=== PATIENT | female | born 1980 | race Two or more races ===

== ENCOUNTER 2018-10-03 19:58 | Inpatient (IN) | payer SELFPAY ==
[~2018-10-03] VITALS: Ht 154.9 cm; Wt 77.3 kg
[2018-10-03] MEDS ORDERED: MAG HYDROX/ALUMINUM HYD/SIMETH 30 ML ORAL.SUSP PO PRN (20:00)
[2018-10-03] MEDS ORDERED: CITRIC ACID/SODIUM CITRATE 30 ML SOLUTION. PO PRN (20:00)
[2018-10-03] MEDS ORDERED: ACETAMINOPHEN 325 MG TABLET. PO PRN (20:00)
[2018-10-03] MEDS ORDERED: 0.9 % SODIUM CHLORIDE 10 ML DISP.SYRIN. IV PRN (20:00)
[2018-10-03] MEDS ORDERED: OXYTOCIN 30 UNIT/500 ML PREMIX 500 ML IV PRN (20:00)
[2018-10-03] MEDS ORDERED: TERBUTALINE 1 MG/ML VIAL. SQ PRN (20:00)
[2018-10-03] MEDS ORDERED: ONDANSETRON PF 4 MG/2 ML VIAL. IV PRN (20:00)
[2018-10-03 20:25] LABS: BILIRUBIN,URINE NEGATIVE (NEG); CLARITY,URINE CLOUDY; COLOR,URINE YELLOW; NITRITE,URINE NEGATIVE (NEG); PROTEIN,URINE NEGATIVE (NEG-TRACE); UROBILINOGEN,URINE 0.2 mg/dL (0.2 mg/dL)
[2018-10-03 20:32] LABS: BARBITURATES NEG (NEG); BENZODIAZEPINES NEG (NEG); CANNABINOIDS NEG (NEG); COCAINE NEG (NEG); METHADONE NEG (NEG); OPIATES NEG (NEG); PHENCYCLIDINE NEG (NEG)
[2018-10-03 20:33] LABS: AMPHETAMINE/METHAMPHETAMINE NEG (NEG)
[2018-10-03 21:06] LABS: BASO % 1 % (0-3); EOS # 0.1 x10^3/uL (0.0-0.7); EOS % 2 % (0-3); HEMOGLOBIN 11.4 g/dL (12.0-15.5); LYMPH # 1.8 x10^3/uL (1.0-4.8); LYMPH % 24 % (24-48); MEAN CORPUSCULAR HEMOGLOBIN 32 pg (25-35); MEAN CORPUSCULAR HGB CONC 36 g/dL (31-37); MEAN CORPUSCULAR VOLUME 89 fL (79-100); MONO # 0.5 x10^3/uL (0.0-1.1); MONO % 7 % (0-9); NEUT % 67 % (31-73); PLATELET COUNT 258 x10^3/uL (140-400); RED CELL DISTRIBUTION WIDTH 13.8 % (11.5-14.5); WHITE BLOOD COUNT 7.5 x10^3/uL (4.0-11.0)
[2018-10-03 22:03] VITALS: BP 115/73
[2018-10-03] MEDS: IV RINGERS,LACTATED 1000ML 1,000 ML IV SCH (22:40)
[2018-10-04] MEDS: IV RINGERS,LACTATED 1000ML 1,000 ML IV SCH ×2 (01:43→06:38)
[2018-10-04] MEDS ORDERED: ceFAZolin SODIUM 1 GM in IV DEXTROSE 5% 50 ML IV ONE (07:00)
[2018-10-04] MEDS ORDERED: ONDANSETRON PF 4 MG/2 ML VIAL. ONE (07:02)
[2018-10-04] MEDS ORDERED: OXYTOCIN 10 UNIT/ML VIAL. ONE ×4 (07:02→08:23)
[2018-10-04] MEDS ORDERED: ePHEDrine PF IN SALINE 50 MG/10 ML SYRINGE. IV ONE (07:02)
[2018-10-04] MEDS ORDERED: MORPHINE PF 10 MG/10 ML AMPUL. ONE (07:03)
[2018-10-04] MEDS ORDERED: fentaNYL PF VIAL 100 MCG/2 ML VIAL ONE (07:04)
--- NOTE | 2018-10-04 07:28 | PDOC1 ---
OB - History Hx of Present Care: Good Care Ultrasounds: Normal mid trimester US Obstetrical Complications: Other (Oligohydramnios) Medical Complications: None Past Family/Social History * Past Medical, Surgical, Family and Obstetric Histories reviewed from chart. Rubella: Immune RPR/VDRL: Negative GBS Status: Negative HBsAG: Negative OB - Chief Complaint & HPI Date of Admission: Date of Admission: Oct 03, 2018 at 19:58 Chief Complaint/History : 2 Para: 1 EGA: 37 Reason for admission: section (Oligohydramnios) Indication for : desires repeat Admission Nurse Assessment Rev: Yes OB - Admission Exam Physical Exam Vitals: VS - Last 72 Hours, by Label Date Time Temp Pulse Resp B/P (MAP) Pulse Ox O2 Delivery O2 Flow Rate FiO2 10/03/18 22:03 98.3 82 18 115/73 (87) Room Air 98.3 HEENT: Normal Heart: Regular Rate Lungs: Clear Abdomen: Gravid, Non tender, Soft Extremities: Edema Reflexes: Normal Cervical Dilatation: None Effacement: 25% Station: Ballotable Membranes: Intact Heart Rate: Normal Accelerations: Accelerations Present Contractions on Admission: >10 Minutes Apart Intensity: Mild Text A: 37 wks IUP Oligohydramnios Previous c/s P: Admit for repeat c/s for oligohydramnios. JONATHON CHAN Jr, MD Oct 04, 2018 07:28
[2018-10-04] MEDS ORDERED: ceFAZolin 1GM IVPB FOR OMNI 1 GM/50 ML BAG IV ONE (07:45)
--- NOTE | 2018-10-04 08:34 | PDOC4 ---
OB Operative Note Date: Oct 04, 2018 PRE OP DIAGNOSIS: Previoujs C- section (Oligohydramnios) POST OP DIAGNOSIS: Other (Same + Breech) OPERATION PERFORMED: R [facility] Surgeon Dr. Gamez Anesthesia: Regional (Spinal) Blood Loss 800 ml Specimen placenta and OB Findings: Position (Breech), Sex (Female), (8/9), Weight (3360 Gram) Complications none Additional Remarks pt. JOANTHON Magdaleno Jr, MD Oct 04, 2018 08:34
[2018-10-04] MEDS ORDERED: ONDANSETRON PF 4 MG/2 ML VIAL. IV PRN (08:45)
[2018-10-04] MEDS ORDERED: SIMETHICONE 80 MG TAB.CHEW PO PRN (08:45)
[2018-10-04] MEDS ORDERED: ZOLPIDEM 5 MG TABLET. PO PRN (08:45)
[2018-10-04] MEDS ORDERED: KETOROLAC 30 MG/ML VIAL. IV PRN (08:45)
[2018-10-04] MEDS ORDERED: 0.9 % SODIUM CHLORIDE 10 ML DISP.SYRIN. IV PRN (08:45)
[2018-10-04] MEDS ORDERED: MAG HYDROX/ALUMINUM HYD/SIMETH 30 ML ORAL.SUSP PO PRN (08:45)
[2018-10-04] MEDS ORDERED: OXYTOCIN 30 UNIT/500 ML PREMIX 500 ML IV PRN (08:45)
[2018-10-04] MEDS ORDERED: diphenhydrAMINE ORAL ELIXIR 12.5 MG/5 ML ML PO PRN (08:45)
--- NOTE | 2018-10-04 08:46 | OP ---
DATE OF SURGERY: PREOPERATIVE DIAGNOSES: 1. A 37 weeks intrauterine . 2. Oligohydramnios. 3. Previous . POSTOPERATIVE DIAGNOSES: 1. A 37 weeks intrauterine . 2. Oligohydramnios. 3. Previous . 4. Breech. PROCEDURE: Repeat low transverse section. SURGEON: Jonathon Gamez MD. ANESTHESIA: Spinal. ESTIMATED BLOOD LOSS: 800 mL. COMPLICATIONS: None. FINDINGS: Viable female infant, Apgars 8 and 9, weight 3360 grams. Three-vessel cord placenta delivered manually intact. SUMMARY: A 37-year-old 2, para 1 at 37 weeks, presented for repeat low transverse section secondary to oligohydramnios. The patient was counseled on risks, benefits and expectations and voiced clear understanding to proceed. DESCRIPTION OF PROCEDURE: The patient was taken to surgery suite and placed in dorsal supine position. She was prepped with ChloraPrep and draped in sterile fashion. After adequate anesthesia, Pfannenstiel skin incision was made with scalpel down to and through the fascia. Fascia was extended using curved Epperson scissors. The superior edge of fascia was grasped with two Kristopher clamps and dissected free of the abdominal rectus muscles using blunt dissection along with Bovie cautery. The same process took place inferiorly. The peritoneum was grasped with 2 hemostats and entered sharply with Metzenbaum scissors. This incision was extended superiorly as well as inferiorly. Bladder flap was created using sharp dissection with Metzenbaum scissors. The Maxi ring retractor was placed. Low transverse hysterotomy incision was made with scalpel down to the amniotic sac. Hysterotomy incision was extended laterally and superiorly digitally. The presenting part was then the feet and was determined to be breech. Amniotomy was performed, which elicited a small amount of clear fluid. Both ankles were grasped with fundal pressure, the infant was delivered down to the subscapular region. A moist blue towel was wrapped around the waist of the infant. The right arm was swept across the chest. The was rotated 180 degrees. Left arm was swept across the chest with additional fundal pressure, the 's head was delivered in atraumatic manner. The was then suctioned with bulb syringe orally and nasally, umbilical cord was clamped twice and cut and viable female infant was handed to waiting nursing staff. Umbilical cord blood was then obtained. Three-vessel cord placenta was delivered manually intact. The uterus was then exteriorized and cleared of clot and debris with a moist lap. Hysterotomy incision was reapproximated using 1 Vicryl suture in running locked fashion and imbricated layer of 1 Vicryl suture was utilized for better hemostasis. Three [id number] sutures were placed along the hysterotomy incision for better hemostasis. Uterus then palpated firm. Fallopian tubes and ovaries appeared normal bilaterally. The posterior cul-de-sac was cleared of clot and debris with moist lap. The uterus was then returned to the abdomen. The hysterotomy incision was reviewed and was hemostatic. Pericolic gutters were cleared of clot and debris with a moist lap. The Maxi ring retractor was removed. Peritoneum was reapproximated using #1 Vicryl suture in running fashion. Fascia was reapproximated using Stratafix in a running fashion. Skin was reapproximated using 4-0 Vicryl suture in subcuticular manner. The patient tolerated the procedure well and was taken to recovery room in stable condition. Sponge and needle count correct x 3. JONATHON GAMEZ MD DR: GALILEA/alejo JOB#: [id number] / [id number]
[2018-10-04 11:20] VITALS: BP 96/60
[2018-10-04 11:50] VITALS: BP 98/67
[2018-10-04 12:10] VITALS: BP 101/70
[2018-10-04 13:05] VITALS: BP 104/72
[2018-10-04] MEDS ORDERED: OXYTOCIN PREMIX 30 UNIT/500 ML NS BAG. IV ONE (17:00)
[2018-10-04 20:00] VITALS: BP 86/56
[2018-10-05 01:08] VITALS: BP 87/55
[2018-10-05 05:01] VITALS: BP 92/60
[2018-10-05 06:47] LABS: BASO # 0.1 x10^3/uL (0.0-0.2); BASO % 1 % (0-3); EOS # 0.1 x10^3/uL (0.0-0.7); EOS % 1 % (0-3); HEMOGLOBIN 8.4 g/dL (12.0-15.5); LYMPH # 1.4 x10^3/uL (1.0-4.8); LYMPH % 15 % (24-48); MEAN CORPUSCULAR HEMOGLOBIN 31 pg (25-35); MEAN CORPUSCULAR HGB CONC 35 g/dL (31-37); MEAN CORPUSCULAR VOLUME 90 fL (79-100); MONO # 0.6 x10^3/uL (0.0-1.1); MONO % 6 % (0-9); NEUT # 7.1 x10^3/uL (1.8-7.7); NEUT % 78 % (31-73); PLATELET COUNT 201 x10^3/uL (140-400); RED BLOOD COUNT 2.68 x10^6/uL (3.50-5.40); RED CELL DISTRIBUTION WIDTH 13.9 % (11.5-14.5); WHITE BLOOD COUNT 9.2 x10^3/uL (4.0-11.0)
[2018-10-05 08:15] VITALS: BP 95/63
--- NOTE | 2018-10-05 08:17 | PDOC ---
OB Progress Note Date of Service 10/05/18 Time of Evaluation 0815 Notes Pt. feeling well. Will improve pain management today. Lab Laboratory Tests Test 10/03/18 20:20 10/03/18 21:00 10/05/18 06:20 Urine Collection Type Unknown Urine Color Yellow Urine Clarity Cloudy Urine pH 6.0 Urine Specific [place] 1.025 Urine Protein Negative mg/dL (NEG-TRACE) Urine Glucose (UA) Negative mg/dL (NEG) Urine Ketones (Stick) Negative mg/dL (NEG) Urine Blood Negative (NEG) Urine Nitrite Negative (NEG) Urine Bilirubin Negative (NEG) Urine Urobilinogen Dipstick 0.2 mg/dL (0.2 mg/dL) Urine Leukocyte Esterase Negative (NEG) Urine Opiates Screen Neg (NEG) Urine Methadone Screen Neg (NEG) Urine Barbiturates Neg (NEG) Urine Phencyclidine Screen Neg (NEG) Urine Amphetamine/Methamphetamine Neg (NEG) Urine Benzodiazepines Screen Neg (NEG) Urine Cocaine Screen Neg (NEG) Urine Cannabinoids Screen Neg (NEG) Urine Ethyl Alcohol Neg (NEG) White Blood Count 7.5 x10^3/uL (4.0-11.0) 9.2 x10^3/uL (4.0-11.0) Red Blood Count 3.60 x10^6/uL (3.50-5.40) 2.68 x10^6/uL (3.50-5.40) Hemoglobin 11.4 g/dL (12.0-15.5) 8.4 g/dL (12.0-15.5) Hematocrit 32.0 % (36.0-47.0) 24.0 % (36.0-47.0) Mean Corpuscular Volume 89 fL (79-100) 90 fL (79-100) Mean Corpuscular Hemoglobin 32 pg (25-35) 31 pg (25-35) Mean Corpuscular Hemoglobin Concent 36 g/dL (31-37) 35 g/dL (31-37) Red Cell Distribution Width 13.8 % (11.5-14.5) 13.9 % (11.5-14.5) Platelet Count 258 x10^3/uL (140-400) 201 x10^3/uL (140-400) Neutrophils (%) (Auto) 67 % (31-73) 78 % (31-73) Lymphocytes (%) (Auto) 24 % (24-48) 15 % (24-48) Monocytes (%) (Auto) 7 % (0-9) 6 % (0-9) Eosinophils (%) (Auto) 2 % (0-3) 1 % (0-3) Basophils (%) (Auto) 1 % (0-3) 1 % (0-3) Neutrophils # (Auto) 5.0 x10^3/uL (1.8-7.7) 7.1 x10^3/uL (1.8-7.7) Lymphocytes # (Auto) 1.8 x10^3/uL (1.0-4.8) 1.4 x10^3/uL (1.0-4.8) Monocytes # (Auto) 0.5 x10^3/uL (0.0-1.1) 0.6 x10^3/uL (0.0-1.1) Eosinophils # (Auto) 0.1 x10^3/uL (0.0-0.7) 0.1 x10^3/uL (0.0-0.7) Basophils # (Auto) 0.0 x10^3/uL (0.0-0.2) 0.1 x10^3/uL (0.0-0.2) Treponema pallidum Antibody Nonreactive (Nonreactive) Hepatitis B Surface Antigen Nonreactive (Nonreactive) Laboratory Tests Test 10/05/18 06:20 White Blood Count 9.2 x10^3/uL (4.0-11.0) Red Blood Count 2.68 x10^6/uL (3.50-5.40) Hemoglobin 8.4 g/dL (12.0-15.5) Hematocrit 24.0 % (36.0-47.0) Mean Corpuscular Volume 90 fL (79-100) Mean Corpuscular Hemoglobin 31 pg (25-35) Mean Corpuscular Hemoglobin Concent 35 g/dL (31-37) Red Cell Distribution Width 13.9 % (11.5-14.5) Platelet Count 201 x10^3/uL (140-400) Neutrophils (%) (Auto) 78 % (31-73) Lymphocytes (%) (Auto) 15 % (24-48) Monocytes (%) (Auto) 6 % (0-9) Eosinophils (%) (Auto) 1 % (0-3) Basophils (%) (Auto) 1 % (0-3) Neutrophils # (Auto) 7.1 x10^3/uL (1.8-7.7) Lymphocytes # (Auto) 1.4 x10^3/uL (1.0-4.8) Monocytes # (Auto) 0.6 x10^3/uL (0.0-1.1) Eosinophils # (Auto) 0.1 x10^3/uL (0.0-0.7) Basophils # (Auto) 0.1 x10^3/uL (0.0-0.2) Medications Current Medications Cefazolin Sodium 1 gm/Dextrose 50 ml @ 100 mls/hr 1X ONCE IV ; Start 10/04/18 at 07:00; Stop 10/04/18 at 07:29; Status UNV Sodium Chloride (Normal Saline Flush) 3 ml QSHIFT PRN IV AFTER MEDS AND BLOOD DRAWS; Start 10/03/18 at 20:00; Stop 10/04/18 at 17:23; Status DC Ringer's Solution 1,000 ml @ 125 mls/hr Q8H IV Last administered on 10/04/18at 06:38; Start 10/03/18 at 20:00 Acetaminophen (Tylenol) 650 mg PRN Q6HRS PRN PO MILD PAIN / TEMP; Start 10/03/18 at 20:00 Ondansetron HCl (Zofran) 4 mg PRN Q4HRS PRN IV NAUSEA/VOMITING; Start 10/03/18 at 20:00; Stop 10/04/18 at 17:23; Status DC Al Hydroxide/Mg Hydroxide (Mylanta Plus Xs) 30 ml PRN Q4HRS PRN PO HEARTBURN / GAS; Start 10/03/18 at 20:00 Citric Acid/ Sodium Citrate (Bicitra) 30 ml 1X PRN PRN PO DYSPEPSIA; Start 10/03/18 at 20:00; Stop 10/04/18 at 17:23; Status DC Terbutaline Sulfate (Brethine) 0.25 mg 1X PRN PRN SQ SEE COMMENTS; Start 10/03/18 at 20:00; Stop 10/04/18 at 17:23; Status DC Oxytocin/Sodium Chloride 500 ml @ 0 mls/hr CONT PRN PRN IV Post delivery bleeding; Start 10/03/18 at 20:00 Cefazolin Sodium 50 ml @ 100 mls/hr 1X PREOP PRN IV PRIOR TO PROCEDURE; Start 10/04/18 at 07:00; Stop 10/04/18 at 07:01; Status DC Ondansetron HCl (Zofran) 4 mg STK-MED ONCE .ROUTE ; Start 10/04/18 at 07:02; Stop 10/04/18 at 07:03; Status DC Oxytocin (Pitocin) 10 unit STK-MED ONCE .ROUTE ; Start 10/04/18 at 07:02; Stop 10/04/18 at 07:03; Status DC Ephedrine Sulfate (ePHEDrine PF IN SALINE SYRINGE) 50 mg STK-MED ONCE IV ; Start 10/04/18 at 07:02; Stop 10/04/18 at 07:03; Status DC Morphine Sulfate (Morphine Preservative Free) 10 mg STK-MED ONCE .ROUTE ; Start 10/04/18 at 07:03; Stop 10/04/18 at 07:04; Status DC Fentanyl Citrate (Fentanyl 2ml Vial) 100 mcg STK-MED ONCE .ROUTE ; Start 10/04/18 at 07:04; Stop 10/04/18 at 07:04; Status DC Cefazolin Sodium 0 ml @ As Directed STK-MED ONCE IV ; Start 10/04/18 at 07:33; Stop 10/04/18 at 07:34; Status DC Oxytocin (Pitocin) 10 unit STK-MED ONCE .ROUTE ; Start 10/04/18 at 08:23; Stop 10/04/18 at 08:23; Status DC Oxytocin (Pitocin) 10 unit STK-MED ONCE .ROUTE ; Start 10/04/18 at 08:23; Stop 10/04/18 at 08:23; Status DC Oxytocin (Pitocin) 10 unit STK-MED ONCE .ROUTE ; Start 10/04/18 at 08:23; Stop 10/04/18 at 08:23; Status DC Sodium Chloride (Normal Saline Flush) 3 ml QSHIFT PRN IV AFTER MEDS AND BLOOD DRAWS; Start 10/04/18 at 08:45; Stop 10/04/18 at 17:24; Status DC Oxytocin/Sodium Chloride 500 ml @ 125 mls/hr CONT PRN IV EXCESSIVE POST- BLEEDING; Start 10/04/18 at 08:45; Stop 10/04/18 at 16:44; Status DC Ibuprofen (Motrin) 800 mg PRN Q4HRS PRN PO INFLAMMATION; Start 10/04/18 at 08:45 Ondansetron HCl (Zofran) 4 mg PRN Q6HRS PRN IV NAUSEA/VOMITING; Start 10/04/18 at 08:45 Docusate Sodium (Colace) 100 mg PRN BID PRN PO CONSTIPATION; Start 10/04/18 at 08:45 Al Hydroxide/Mg Hydroxide (Mylanta Plus Xs) 30 ml PRN Q4HRS PRN PO HEARTBURN / GAS; Start 10/04/18 at 08:45 Simethicone (Gas-X) 80 mg PRN AFTMEALHC PRN PO GAS / BLOATING; Start 10/04/18 at 08:45 Diphenhydramine HCl (Benadryl Oral Elixir) 12.5 mg PRN Q6HRS PRN PO ITCHING; Start 10/04/18 at 08:45 Ferrous Sulfate (Feosol) 325 mg BIDWMEALS PO ; Start 10/04/18 at 09:00 Zolpidem Tartrate (Ambien) 5 mg PRN QHS PRN PO INSOMNIA, MAY REPEAT X1; Start 10/04/18 at 08:45 Oxycodone/ Acetaminophen (Percocet 5/325) 2 tab PRN Q4HRS PRN PO MODERATE PAIN, SEVERE PAIN; Start 10/04/18 at 08:45 Ketorolac Tromethamine (Toradol 30mg Vial) 30 mg PRN Q6HRS PRN IV MODERATE PAIN Last administered on 10/04/18at 17:19; Start 10/04/18 at 08:45; Stop 10/09/18 at 08:44 Cefazolin Sodium (Ancef 1gm Ivpb For Omni) 2 gm STK-MED ONCE IV ; Start 10/04/18 at 07:45; Stop 10/04/18 at 08:53; Status DC Oxytocin/Sodium Chloride (Oxytocin Premix Infusion) 30 unit STK-MED ONCE IV ; Start 10/04/18 at 17:00; Stop 10/05/18 at 08:03; Status DC Exam Abd: soft, moderate tenderness, fundus firm Bandage removed. Incision site: clean, dry and intact Assessment POD#1 s/p repeat c/s Plan of Care: Continue current Tx, Mgmt JONATHON CHAN Jr, MD Oct 05, 2018 08:17
[2018-10-05] MEDS: DOCUSATE SODIUM 100 MG CAPSULE. PO PRN (08:39)
[2018-10-05] MEDS: FERROUS SULFATE 325 MG TABLET. PO SCH ×2 (08:39→17:22)
[2018-10-05] MEDS: oxyCODONE/APAP 5/325 1 TAB TABLET PO PRN ×5 (08:39→21:13)
[2018-10-05] MEDS: IBUPROFEN 400 MG TABLET. PO PRN ×3 (08:40→21:13)
[2018-10-05 17:20] VITALS: BP 87/55
[2018-10-05 22:56] VITALS: BP 82/47
[2018-10-06] MEDS: IBUPROFEN 400 MG TABLET. PO PRN ×2 (01:56→13:02)
[2018-10-06] MEDS: oxyCODONE/APAP 5/325 1 TAB TABLET PO PRN ×5 (01:57→17:43)
[2018-10-06 05:18] VITALS: BP 98/57
[2018-10-06] MEDS: FERROUS SULFATE 325 MG TABLET. PO SCH ×2 (09:06→17:40)
[2018-10-06] MEDS: DOCUSATE SODIUM 100 MG CAPSULE. PO PRN (09:06)
[2018-10-06 11:25] VITALS: BP 90/60
--- NOTE | 2018-10-06 12:00 | PDOC ---
OB Progress Note Date of Service 10/06/18 Time of Evaluation 1200 Notes PT. feeling well. No complaints. Lab Laboratory Tests Test 10/05/18 06:20 White Blood Count 9.2 x10^3/uL (4.0-11.0) Red Blood Count 2.68 x10^6/uL (3.50-5.40) Hemoglobin 8.4 g/dL (12.0-15.5) Hematocrit 24.0 % (36.0-47.0) Mean Corpuscular Volume 90 fL (79-100) Mean Corpuscular Hemoglobin 31 pg (25-35) Mean Corpuscular Hemoglobin Concent 35 g/dL (31-37) Red Cell Distribution Width 13.9 % (11.5-14.5) Platelet Count 201 x10^3/uL (140-400) Neutrophils (%) (Auto) 78 % (31-73) Lymphocytes (%) (Auto) 15 % (24-48) Monocytes (%) (Auto) 6 % (0-9) Eosinophils (%) (Auto) 1 % (0-3) Basophils (%) (Auto) 1 % (0-3) Neutrophils # (Auto) 7.1 x10^3/uL (1.8-7.7) Lymphocytes # (Auto) 1.4 x10^3/uL (1.0-4.8) Monocytes # (Auto) 0.6 x10^3/uL (0.0-1.1) Eosinophils # (Auto) 0.1 x10^3/uL (0.0-0.7) Basophils # (Auto) 0.1 x10^3/uL (0.0-0.2) Medications Current Medications Cefazolin Sodium 1 gm/Dextrose 50 ml @ 100 mls/hr 1X ONCE IV ; Start 10/04/18 at 07:00; Stop 10/04/18 at 07:29; Status UNV Sodium Chloride (Normal Saline Flush) 3 ml QSHIFT PRN IV AFTER MEDS AND BLOOD DRAWS; Start 10/03/18 at 20:00; Stop 10/04/18 at 17:23; Status DC Ringer's Solution 1,000 ml @ 125 mls/hr Q8H IV Last administered on 10/04/18at 06:38; Start 10/03/18 at 20:00 Acetaminophen (Tylenol) 650 mg PRN Q6HRS PRN PO MILD PAIN / TEMP; Start 10/03/18 at 20:00 Ondansetron HCl (Zofran) 4 mg PRN Q4HRS PRN IV NAUSEA/VOMITING; Start 10/03/18 at 20:00; Stop 10/04/18 at 17:23; Status DC Al Hydroxide/Mg Hydroxide (Mylanta Plus Xs) 30 ml PRN Q4HRS PRN PO HEARTBURN / GAS; Start 10/03/18 at 20:00 Citric Acid/ Sodium Citrate (Bicitra) 30 ml 1X PRN PRN PO DYSPEPSIA; Start 10/03/18 at 20:00; Stop 10/04/18 at 17:23; Status DC Terbutaline Sulfate (Brethine) 0.25 mg 1X PRN PRN SQ SEE COMMENTS; Start 10/03/18 at 20:00; Stop 10/04/18 at 17:23; Status DC Oxytocin/Sodium Chloride 500 ml @ 0 mls/hr CONT PRN PRN IV Post delivery bleeding; Start 10/03/18 at 20:00 Cefazolin Sodium 50 ml @ 100 mls/hr 1X PREOP PRN IV PRIOR TO PROCEDURE; Start 10/04/18 at 07:00; Stop 10/04/18 at 07:01; Status DC Ondansetron HCl (Zofran) 4 mg STK-MED ONCE .ROUTE ; Start 10/04/18 at 07:02; Stop 10/04/18 at 07:03; Status DC Oxytocin (Pitocin) 10 unit STK-MED ONCE .ROUTE ; Start 10/04/18 at 07:02; Stop 10/04/18 at 07:03; Status DC Ephedrine Sulfate (ePHEDrine PF IN SALINE SYRINGE) 50 mg STK-MED ONCE IV ; Start 10/04/18 at 07:02; Stop 10/04/18 at 07:03; Status DC Morphine Sulfate (Morphine Preservative Free) 10 mg STK-MED ONCE .ROUTE ; Start 10/04/18 at 07:03; Stop 10/04/18 at 07:04; Status DC Fentanyl Citrate (Fentanyl 2ml Vial) 100 mcg STK-MED ONCE .ROUTE ; Start 10/04/18 at 07:04; Stop 10/04/18 at 07:04; Status DC Cefazolin Sodium 0 ml @ As Directed STK-MED ONCE IV ; Start 10/04/18 at 07:33; Stop 10/04/18 at 07:34; Status DC Oxytocin (Pitocin) 10 unit STK-MED ONCE .ROUTE ; Start 10/04/18 at 08:23; Stop 10/04/18 at 08:23; Status DC Oxytocin (Pitocin) 10 unit STK-MED ONCE .ROUTE ; Start 10/04/18 at 08:23; Stop 10/04/18 at 08:23; Status DC Oxytocin (Pitocin) 10 unit STK-MED ONCE .ROUTE ; Start 10/04/18 at 08:23; Stop 10/04/18 at 08:23; Status DC Sodium Chloride (Normal Saline Flush) 3 ml QSHIFT PRN IV AFTER MEDS AND BLOOD DRAWS; Start 10/04/18 at 08:45; Stop 10/04/18 at 17:24; Status DC Oxytocin/Sodium Chloride 500 ml @ 125 mls/hr CONT PRN IV EXCESSIVE POST- BLEEDING; Start 10/04/18 at 08:45; Stop 10/04/18 at 16:44; Status DC Ibuprofen (Motrin) 800 mg PRN Q4HRS PRN PO INFLAMMATION Last administered on 10/06/18at 01:57; Start 10/04/18 at 08:45 Ondansetron HCl (Zofran) 4 mg PRN Q6HRS PRN IV NAUSEA/VOMITING; Start 10/04/18 at 08:45 Docusate Sodium (Colace) 100 mg PRN BID PRN PO CONSTIPATION Last administered on 10/06/18at 09:06; Start 10/04/18 at 08:45 Al Hydroxide/Mg Hydroxide (Mylanta Plus Xs) 30 ml PRN Q4HRS PRN PO HEARTBURN / GAS; Start 10/04/18 at 08:45 Simethicone (Gas-X) 80 mg PRN AFTMEALHC PRN PO GAS / BLOATING; Start 10/04/18 at 08:45 Diphenhydramine HCl (Benadryl Oral Elixir) 12.5 mg PRN Q6HRS PRN PO ITCHING; Start 10/04/18 at 08:45 Ferrous Sulfate (Feosol) 325 mg BIDWMEALS PO Last administered on 10/06/18at 09:06; Start 10/04/18 at 09:00 Zolpidem Tartrate (Ambien) 5 mg PRN QHS PRN PO INSOMNIA, MAY REPEAT X1; Start 10/04/18 at 08:45 Oxycodone/ Acetaminophen (Percocet 5/325) 2 tab PRN Q4HRS PRN PO MODERATE PAIN, SEVERE PAIN Last administered on 10/06/18at 09:06; Start 10/04/18 at 08:45 Ketorolac Tromethamine (Toradol 30mg Vial) 30 mg PRN Q6HRS PRN IV MODERATE PAIN Last administered on 10/04/18at 17:19; Start 10/04/18 at 08:45; Stop 10/09/18 at 08:44 Cefazolin Sodium (Ancef 1gm Ivpb For Omni) 2 gm STK-MED ONCE IV ; Start 10/04/18 at 07:45; Stop 10/04/18 at 08:53; Status DC Oxytocin/Sodium Chloride (Oxytocin Premix Infusion) 30 unit STK-MED ONCE IV ; Start 10/04/18 at 17:00; Stop 10/05/18 at 08:03; Status DC Exam Abd: soft, non tender, fundus firm Incision site: clean, dry and intact Assessment POD#2 s/p repeat c/s Plan of Care: Continue current Tx, JONATHON Soriano Jr, MD Oct 06, 2018 12:00
[2018-10-06 18:23] VITALS: BP 96/61
[2018-10-06 18:58] VITALS: BP 91/65
[2018-10-06 23:26] VITALS: BP 111/67
[2018-10-07 06:35] VITALS: BP 93/62
[2018-10-07] MEDS: DOCUSATE SODIUM 100 MG CAPSULE. PO PRN (08:09)
[2018-10-07] MEDS: FERROUS SULFATE 325 MG TABLET. PO SCH (08:10)
[2018-10-07] MEDS: IBUPROFEN 400 MG TABLET. PO PRN ×2 (08:11→12:11)
--- NOTE | 2018-10-07 10:17 | PDOC3 ---
OB DISCHARGE SUMMARY DATE OF ADMISSION: 10/03/18 DATE OF DISCHARGE: 10/07/18 REASON FOR ADMISSION: section (Oligohydramnios and breech) INTRAPARTUM PROCEDURES: : Low Cerv Trans DISCHARGE DIAGNOSIS: Term Delivered (Oligohydramnios and Breech) DISCHARGE INFORMATION: Activity (ad brandy), Diet (regular), Instructions (pelvic rest x 6 wks, no driving x 2 wks, no lifting > 20 lbs. x 6 wks) HOSPITAL COURSE Term gestation delivered via repeat section without complications. JONATHON CHAN Jr, MD Oct 07, 2018 10:17
--- NOTE | 2018-10-07 10:18 | DISCH ---
DISCHARGE INSTRUCTIONS Condition on Discharge Condition on Discharge: Stable Activity After Discharge Activity Instructions for Disc: Activity as tolerated Lifting Instructions after Dis: No heavy lifting Driving Instructions after Dis: No driving for 2 weeks Diet after Discharge Diet after Discharge: Regular Contacting the DRBear after DC Call your doctor for: Concerns you may have Follow-Up Follow up with: Dr. Gamez in 2 wks. JONATHON GAMEZ Jr, MD Oct 07, 2018 10:18
[2018-10-07] MEDS ORDERED: DOCU-109 PO (10:21)
[2018-10-07] MEDS ORDERED: OXYC1TAB15 PO (10:21)
[2018-10-07] MEDS ORDERED: IBUP-1027 PO (10:21)
[2018-10-07] MEDS ORDERED: BISACODYL 10 MG SUPP.RECT. PR PRN (12:15)
[2018-10-07 12:30] VITALS: BP 93/62
[2018-10-07] MEDS ORDERED: MEASLES, MUMPS & RUBELLA VACC 0.5 ML VIAL. VAX SQ ONE (13:30)
== END 2018-10-07 15:20 | disposition home or self-care (01) | DRG 787 ==
LOC: 3 SO LND 19:58 → 3 NORTH 10-04 11:05 → OBSVTOIN 10-04 11:06
PROVIDERS: ADMIT Obstetrics & Gynecology; ATTEND Obstetrics & Gynecology
PROC: 10D00Z1 Extraction of Products of Conception, Low, Open Approach (ICD-10-PCS; principal; 2018-10-04)
DX: O32.1XX0 Maternal care for breech presentation, not applicable or unspecified (principal); O41.03X0 Oligohydramnios, third trimester, not applicable or unspecified; O34.211 Maternal care for low transverse scar from previous cesarean delivery; Z3A.37 37 weeks gestation of pregnancy; Z37.0 Single live birth
CPT/HCPCS: 36415; 80307; 81003; 85025; 86592; 86850; 86900; 86901; 87340; G0378; G0379; J0171; J0690; J1885; J2274; J2405; J2590; J3010; J7120